=== PATIENT | female | born 1985 | race Caucasian/White ===

== ENCOUNTER 2017-06-14 11:27 | Emergency (ER) | payer OTHER, SELFPAY ==
[2017-06-14 11:53] LABS: BASOPHIL % 0.4 % (0.0-0.4); Basophil (Absolute #) 0.02 (0-0.4); Eosinophil % 3.4 % (0.00-5.0); Eosinophil (Absolute #) 0.17 (0-0.5); Granulocyte Absolute (ANC) 2.68 (1.4-6.9); Hematocrit 39.9 % (35-47); Lymphocyte (Absolute #) 1.78 (1.0-4.6); Lymphocytes % 35.9 % (24.0-44.0); Mean Cell Volume 94.1 fl (78-100); Mean Corpuscular Hemoglobin 30.7 pg (26-32); Mean Corpuscular Hgb Concent. 32.6 g/dl (32-36); Mean Platelet Volume 10.1 fl (6-9.5); Monocyte (Absolute #) 0.31 (0.0-1.3); Monocytes % 6.3 % (0.0-12.0); Platelet Count 221 K/mm3 (150-450); Red Blood Count 4.24 M/mm3 (4.1-5.4); Red Cell Distribution Width 14.4 % (11.5-14.0)
[2017-06-14 11:57] LABS: VBG BASE EXCESS 3.3 (-2.0-2.0); VBG HCO3- 28.5 meq/L (22-28); VBG HEMOGLOBIN 12.4; VBG O2 SATURATION 34.2 (95-100); VBG POTASSIUM 3.5 (3.5-5.1); VBG pH 7.41 (7.32-7.42)
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
[2017-06-14 12:48] LABS: ALBUMIN 3.9 g/dL (3.4-5.0); ALKALINE PHOSPHATASE 71 U/L (46-116); ANION GAP 11.3 MEQ/L (5-15); BLOOD UREA NITROGEN 15 mg/dL (9-20); CHLORIDE 106 mEq/L (98-107); Calcium 8.8 mg/dL (8.5-10.1); Carbon Dioxide 27.6 mEq/L (21-32); Glucose 60 MG/DL (70-110); Potassium 3.2 mEq/L (3.5-5.1); SGOT/AST 28 U/L (15-37); SGPT/ALT 78 U/L (12-78); SODIUM 142 mEq/L (136-145); Total Protein 7.5 gm/dL (6.4-8.2)
[2017-06-14 12:51] LABS: Appearance CLOUDY (CLEAR); Bilirubin NEGATIVE (NEGATIVE); Blood 50 Ery/ul (0-5); Glucose NEGATIVE (NEGATIVE); Ketones NEGATIVE (NEGATIVE); Leukocyte Esterase 2+ (NEGATIVE); Nitrite POSITIVE (NEGATIVE); Protein,Urine Dip TRACE (Negative); Urobilinogen NORMAL mg/dL (0-1)
[2017-06-14 12:55] LABS: DILANTIN(PHENYTOIN) 0.7 ug/ml (10-20)
[2017-06-14 12:59] LABS: Mucus SLIGHT /HPF (NEGATIVE); WBC 50-100 /HPF (0-5)
[2017-06-14 13:00] LABS: Bacteria PACKED /HPF (NEGATIVE); Epithelial Cells FEW /HPF (FEW)
[2017-06-14 13:07] LABS: Amphetamine,Urine POS. (NEGATIVE); Barbiturate,Urine NEG. (NEGATIVE); Benzodiazepine,Urine NEG. (NEGATIVE); Cocaine,Urine NEG. (NEGATIVE); Methadone,Urine NEG. (NEGATIVE); Opiate,Urine NEG. (NEGATIVE); PCP,Urine NEG. (NEGATIVE); THC,Urine POS. (NEGATIVE)
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
[2017-06-14 13:59] VITALS: O2SAT 98
[2017-06-14 14:00] VITALS: BP 104/80; PULSE 88
== END 2017-06-14 14:04 | disposition home or self-care (01) ==
LOC: ED 11:27
DX: F19.10 Other psychoactive substance abuse, uncomplicated (principal); E16.2 Hypoglycemia, unspecified; N39.0 Urinary tract infection, site not specified; Z86.69 Personal history of other diseases of the nervous system and sense organs
CPT/HCPCS: 36000; 36415; 70450; 80053; 80185; 80307; 81000; 82805; 82962; 84703; 85025; 87077; 87086; 87186; 99283; 99284; G0480

== ENCOUNTER 2017-08-21 10:49 | Emergency (ER) | payer OTHER ==
[2017-08-21 11:01] VITALS: O2SAT 99
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
[2017-08-21 11:32] VITALS: BP 120/70; PULSE 74
== END 2017-08-21 11:32 | disposition home or self-care (01) ==
LOC: ED 10:49
DX: Z76.0 Encounter for issue of repeat prescription (principal); Z86.69 Personal history of other diseases of the nervous system and sense organs
CPT/HCPCS: 99281; 99283

== ENCOUNTER 2017-11-02 21:00 | Emergency (ER) | payer OTHER | END 2017-11-02 21:32 | disposition left against medical advice (07) | LOC: ED 21:00 | DX: Z53.9 Procedure and treatment not carried out, unspecified reason (principal) ==

== ENCOUNTER 2017-11-05 20:26 | Emergency (ER) | payer OTHER ==
[2017-11-05] MEDS ORDERED: Zofran 4 MG/2 ML VIAL IV ONE (20:44)
[2017-11-05] MEDS ORDERED: TORAdol 30 mg Injection IV ONE (20:44)
[2017-11-05] MEDS ORDERED: Sodium Chloride 0.9% 1000 ML 1,000 ML IV STA ×2 (20:44→20:45)
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
[2017-11-05] MEDS ORDERED: Zofran 4 MG/2 ML VIAL ONE (20:59)
[2017-11-05] MEDS ORDERED: TORAdol 30 mg Injection ONE (21:00)
[2017-11-05] MEDS ORDERED: Sodium Chloride 0.9% 1000 ML 1,000 ML ONE ×2 (21:00→22:13)
[2017-11-05 21:11] LABS: BASOPHIL % 0.1 % (0.0-0.4); Basophil (Absolute #) 0.01 (0-0.4); Eosinophil % 0.2 % (0.00-5.0); Eosinophil (Absolute #) 0.02 (0-0.5); Granulocyte Absolute (ANC) 7.91 (1.4-6.9); Granulocytes % 85.1 % (36.0-66.0); Hemoglobin 11.9 gm/dl (12.0-16.0); Lymphocyte (Absolute #) 0.73 (1.0-4.6); Lymphocytes % 7.8 % (24.0-44.0); Mean Cell Volume 92.5 fl (78-100); Mean Corpuscular Hgb Concent. 33.1 g/dl (32-36); Mean Platelet Volume 10.4 fl (6-9.5); Monocyte (Absolute #) 0.63 (0.0-1.3); Monocytes % 6.8 % (0.0-12.0); Platelet Count 123 K/mm3 (150-450); Red Blood Count 3.89 M/mm3 (4.1-5.4); Red Cell Distribution Width 13.3 % (11.5-14.0); White Blood Count 9.3 K/mm3 (4.0-10.5)
[2017-11-05 21:27] LABS: ALBUMIN 3.7 g/dL (3.5-5.0); ALKALINE PHOSPHATASE 86 U/L (38-126); AMYLASE 39 U/L (30-110); BLOOD UREA NITROGEN 12 mg/dL (7-17); CHLORIDE 94 mmol/L (98-107); Calcium 8.8 mg/dL (8.4-10.2); Carbon Dioxide 23 mmol/L (22-30); Creatinine 1 0.79 mg/dL (0.52-1.04); Glucose 188 mg/dL (74-106); LIPASE 35 U/L (23-300); Mean Corpuscular Hemoglobin 30.5 pg (26-32); Potassium 3.2 mmol/L (3.5-5.1); SGOT/AST 13 U/L (14-36); SGPT/ALT 13 U/L (0-35); SODIUM 126 mmol/L (137-145); Total Protein 6.7 g/dL (6.3-8.2)
[2017-11-05 21:54] LABS: Amphetamine,Urine POSITIVE (NEGATIVE); Barbiturate,Urine NEGATIVE (NEGATIVE); Benzodiazepine,Urine NEGATIVE (NEGATIVE); Cocaine,Urine NEGATIVE (NEGATIVE); Methadone,Urine NEGATIVE (NEGATIVE); Opiate,Urine NEGATIVE (NEGATIVE); PCP,Urine NEGATIVE (NEGATIVE); THC,Urine NEGATIVE (NEGATIVE)
[2017-11-05 22:05] LABS: Appearance CLEAR (CLEAR); Bilirubin NEGATIVE (NEGATIVE); Blood 50 Ery/ul (0-5); Epithelial Cells MODERATE /HPF (FEW); Glucose NEGATIVE (NEGATIVE); Ketones NEGATIVE (NEGATIVE); Leukocyte Esterase 1+ (NEGATIVE); Nitrite POSITIVE (NEGATIVE); Ph 6.5 (5-6); Protein,Urine Dip TRACE (Negative); Specific Gravity 1.005 (1.005-1.025); Urobilinogen NORMAL mg/dL (0-1); WBC 15-25 /HPF (0-5)
[2017-11-05 22:06] LABS: Bacteria MANY /HPF (NEGATIVE)
[2017-11-05] MEDS ORDERED: ROCEPHIN 1 Gm-D5w 50 ml Bag** 1 G/50 ML IVPB IV STA (22:10)
[2017-11-05] MEDS ORDERED: ROCEPHIN 1 Gm-D5w 50 ml Bag** 1 G/50 ML IVPB IV ONE (22:13)
--- NOTE | 2017-11-05 22:22 | XRAY ---
Indication: Left flank pain, nausea, and diarrhea. History kidney stone. Multiple contiguous axial images obtained through the abdomen and pelvis without contrast using renal stone protocol. Comparison: None Lung bases demonstrates tiny left base calcified granuloma. No infiltrate or effusion. Heart is not enlarged. Nonobstructing punctate calculus in the right upper renal calyx. No renal calculus or evidence for objective uropathy in the left system. Multiple bilateral pelvic phleboliths. No free fluid/air. Noncontrasted stomach and bowel loops appear nonobstructed. Normal appendix. Remaining liver, gallbladder, pancreas, spleen, adrenal glands, kidneys, ureters, bladder, uterus, and aorta appear unremarkable for noncontrast exam. Osseous structures intact. No ventral or inguinal hernias. Impression: 1. Nonobstructing right renal micro-calculus. 2. No acute intra-abdominal/pelvic abnormalities on this noncontrast exam. CTDI 10.20
[2017-11-05 22:31] VITALS: O2SAT 98
[2017-11-05] MEDS ORDERED: K-LYTE 25 MEQ PO ONE (22:34)
[2017-11-05] MEDS ORDERED: NORCO 5/325 MG PO ONE (22:39)
[2017-11-05] MEDS ORDERED: K-LYTE 25 MEQ ONE (22:40)
[2017-11-05] MEDS ORDERED: NORCO 5/325 MG ONE (22:45)
[2017-11-05 23:03] VITALS: BP 110/58; PULSE 77
== END 2017-11-05 23:07 | disposition home or self-care (01) ==
LOC: ED 20:26
DX: R10.32 Left lower quadrant pain (principal); R10.9 Unspecified abdominal pain; N39.0 Urinary tract infection, site not specified; R19.7 Diarrhea, unspecified
CPT/HCPCS: 36415; 74176; 80053; 80307; 81000; 82150; 83605; 83690; 84703; 85025; 87040; 87077; 87086; 87186; 96360; 96365; 96374; 96375; 99284; J0696; J1885; J2405; A9270-GY

== ENCOUNTER → 2021-12-09 | Emergency (ER) | payer OTHER | END | disposition left against medical advice (07) | LOC: ED 19:59 | DX: Z53.21 Procedure and treatment not carried out due to patient leaving prior to being seen by health care provider (principal) ==

== ENCOUNTER 2021-12-10 11:41 | Emergency (ER) | payer OTHER ==
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
[2021-12-10 12:07] VITALS: BP 100/64; O2SAT 100
--- NOTE | 2021-12-10 12:25 | XRAY ---
Indication: Tripping injury. Comparison: None 3 view left ankle demonstrates mild anterolateral soft tissue swelling. No other bony, articular, or soft tissue abnormalities.
[2021-12-10 12:30] VITALS: PULSE 76
== END 2021-12-10 12:41 | disposition home or self-care (01) ==
LOC: ED 11:41
DX: S90.812A Abrasion, left foot, initial encounter (principal); L03.116 Cellulitis of left lower limb; S93.402A Sprain of unspecified ligament of left ankle, initial encounter; W18.39XA Other fall on same level, initial encounter; Y93.K1 Activity, walking an animal; Z72.0 Tobacco use
CPT/HCPCS: 73610; 99283